=== PATIENT | male | born 1985 | race Two or more races ===

== ENCOUNTER 2018-10-18 20:20 | Emergency (ER) | payer SELFPAY ==
[~2018-10-18] VITALS: Ht 165.1 cm; Wt 71.2 kg
[2018-10-18] MEDS ORDERED: PAXIL10 MG ORAL (20:27)
--- NOTE | 2018-10-18 20:35 | NUR ---
ED Nurse Note: PT CAME TO ED C/O ANXIETY, PT STATES HIS HEAD HURTS 4/10 WHEN HE FEELS NERVOIUS. PT ALSO SAYS HE HAS STOMACHE AND WHITE SPOTS ON HIS GUMS. LOWER GUMS HAS 2 WHITE SPOTS PRESENTS. PT STATES HE FEEL THIS WAY AFTER TAKING PAXIL.
[2018-10-18 20:37] VITALS: BP 125/74
[2018-10-18] MEDS ORDERED: ZOFRAN4 MG ORAL (21:07)
[2018-10-18] MEDS ORDERED: IBUPROFEN600 MG ORAL (21:07)
--- NOTE | 2018-10-18 21:07 | Emergency Room Report ---
History of Present Illness General Chief Complaint: General Complaint Source: Patient Present Illness [facility] This is a [id number]-year-old male with history of anxiety. He just started Paxil a week ago. He presents with chief complaint of feeling nauseous, gassy, slight cough and lesion in his mouth. Onset for last 4 days. No fever chills. Nauseous but no vomiting. Coughing is nonproductive in nature. No diarrhea. Eating drinking normally. No other complaint. Allergies: Coded Allergies: No Known Allergies (Unverified , 10/18/18) Patient History Past Medical History: see triage record, old chart reviewed, psych hx Past Surgical History: none Pertinent Family History: none Social History: Denies: smoking Immunizations: other Reviewed Nursing Documentation: PMH: Agreed; PSxH: Agreed Nursing Documentation-PMH Past Medical History: No Stated History Review of Systems Eye: Denies: eye pain, blurred vision ENT: Denies: ear pain, nose congestion, throat swelling Respiratory: Reports: cough; Denies: shortness of breath Cardiovascular: Denies: chest pain, palpitations Gastrointestinal: Reports: nausea; Denies: abdominal pain, diarrhea, vomiting Musculoskeletal: Denies: back pain, joint pain Skin: Denies: rash Neurological: Denies: headache, numbness Endocrine: Denies: increased thirst, increased urine Hematologic/Lymphatic: Denies: easy bruising All Other Systems: negative except mentioned in HPI Physical Exam Vital Signs Date Time Temp Pulse Resp B/P (MAP) Pulse Ox O2 Delivery O2 Flow Rate FiO2 10/18/18 20:22 99.1 85 18 95 Room Air 10/18/18 20:37 125/74 vitals normal Sp02 EP Interpretation: reviewed, normal General Appearance: well appearing, no apparent distress, alert Head: normocephalic, atraumatic Eyes: bilateral eye PERRL, bilateral eye EOMI ENT: hearing grossly normal, normal pharynx, other - Right lower lip with aphtous ulcer Neck: full range of motion, supple, no meningismus Respiratory: chest non-tender, lungs clear, normal breath sounds Cardiovascular #1: regular rate, rhythm, no murmur Gastrointestinal: normal bowel sounds, non tender, no mass, no organomegaly, no bruit, non-distended Musculoskeletal: back normal, gait/station normal, normal range of motion Psychiatric: mood/affect normal Skin: warm/dry Medical Decision Making Diagnostic Impression: Primary Impression: Aphthous ulcer Additional Impression: Viral infection ER Course Patient with an aphthous ulcer. This is part of the other constellation of symptoms consistent with a viral illness. No evidence of allergic reaction. No evidence of bacterial infection. No evidence of measles. We will discharge home. Last Vital Signs Date Time Temp Pulse Resp B/P (MAP) Pulse Ox O2 Delivery O2 Flow Rate FiO2 10/18/18 20:37 85 18 Room Air 10/18/18 20:37 99.1 125/74 95 Status: unchanged Disposition: HOME, SELF-CARE Condition: Stable Scripts Ondansetron (Zofran) 4 Mg Tablet 4 MG ORAL Q6H PRN for Nausea & Vomiting, #10 TAB 0 Refills Prov: Brad Guthrie MD 10/18/18 Ibuprofen* (MOTRIN*) 600 Mg Tablet 600 MG ORAL THREE TIMES A DAY, #30 TAB 0 Refills Prov: Brad Guthrie MD 10/18/18 Additional Instructions: Follow-up with your doctor in 7 days. Return if symptom worsen. Brad Guthrie MD October 18, 2018 21:07
[2018-10-18 21:15] VITALS: BP 120/83
--- NOTE | 2018-10-18 21:16 | NUR ---
ER DISCHARGE NOTE: Patient is cleared to be discharged per ERMD, pt is aox4, on room air, with stable vital signs. pt was given dc and prescription instructions, pt was able to verbalize understanding, pt id band removed. pt is able to ambulate with steady gait. pt took all belongings.
== END 2018-10-18 21:20 | disposition home or self-care (01) ==
LOC: EMR 21:15
DX: K12.0 Recurrent oral aphthae (principal); B34.9 Viral infection, unspecified; R05 Cough
CPT/HCPCS: 99282